=== PATIENT | female | born 1945 | race Caucasian/White ===

== ENCOUNTER 2017-03-27 16:57 | Inpatient (IN) | payer MEDICARE ==
[2017-03-27] MEDS ORDERED: SODIUM CHLORIDE 0.9% 1,000 ML IV STA ×2 (17:40→18:56)
--- NOTE | 2017-03-27 17:42 | ED ---
General Adult HPI - General Chief complaint: Recheck/Abnormal Lab/Rx Stated complaint: Sent by [facility] potassium Time Seen by Provider: 03/27/17 17:37 Source: patient, family, RN notes reviewed Mode of arrival: wheelchair Limitations: no limitations - History of Present Illness Initial comments: Patient is a pleasant 72-year-old female presenting to the emergency department for abnormal labs. Patient saw primary care doctor today and was told there was concerns regarding kidney function and potassium level. Patient states she feels fine and has no complaints. Daughter is concerned the patient has been urinating less than normal however patient feels it has been normal. No history of kidney - Related Data Home Medications Medication Instructions Recorded Confirmed Aspirin [Adult Low Dose Aspirin EC] 81 mg PO DAILY 03/27/17 03/27/17 Atenolol [Tenormin] 12.5 mg PO DAILY 03/27/17 03/27/17 Atorvastatin Calcium [Lipitor] 10 mg PO HS 03/27/17 03/27/17 Levothyroxine Sodium 88 mcg PO DAILY 03/27/17 03/27/17 Lisinopril 40 mg PO BID 03/27/17 03/27/17 amLODIPine [Norvasc] 5 mg PO BID 03/27/17 03/27/17 Allergies Allergy/AdvReac Type Severity Reaction Status Date / Time Penicillins Allergy Rash/Hives Verified 03/27/17 18:25 Review of Systems ROS Statement: Those systems with pertinent positive or pertinent negative responses have been documented in the HPI. ROS Other: All systems not noted in ROS Statement are negative. Constitutional: Denies: fever Eyes: Denies: eye pain ENT: Denies: ear pain Respiratory: Denies: cough Cardiovascular: Denies: chest pain Endocrine: Denies: fatigue Gastrointestinal: Denies: abdominal pain Genitourinary: Denies: urgency, dysuria, frequency, hematuria Musculoskeletal: Denies: back pain Skin: Denies: rash Neurological: Denies: headache Past Medical History Past Medical History: No Reported History History of Any Multi-Drug Resistant Organisms: None Reported Past Surgical History: No Surgical Hx Reported Past Psychological History: No Psychological Hx Reported Smoking Status: Never smoker Past Alcohol Use History: None Reported Past Drug Use History: None Reported General Exam Limitations: no limitations General appearance: alert, in no apparent distress Head exam: Present: atraumatic Eye exam: Present: normal appearance, PERRL ENT exam: Present: normal oropharynx Neck exam: Present: normal inspection Respiratory exam: Present: normal lung sounds bilaterally Cardiovascular Exam: Present: regular rate, normal rhythm GI/Abdominal exam: Present: soft. Absent: tenderness Extremities exam: Present: normal inspection Back exam: Present: normal inspection. Absent: CVA tenderness (R), CVA tenderness (L) Neurological exam: Present: alert Psychiatric exam: Present: flat affect Skin exam: Present: normal color Course Vital Signs 03/27/17 03/27/17 17:26 18:41 Temperature 97.4 F L Pulse Rate 77 78 Respiratory 20 18 Rate Blood Pressure 98/58 95/58 O2 Sat by Pulse 98 99 Oximetry - Reevaluation(s) Reevaluation #1: 03/27/17 19:06 Hospitals out of sodium bicarb and sodium acetate. Patient will be provided bicarb tablets. Patient and family updated on results and plan. Case discussed in detail with Dr. bullard, who will admit for Dr. Banks. Admission orders written. Consult placed for nephrology. EKG Findings - EKG Comments: EKG Findings:: Normal sinus rhythm 69. First-degree AV block NE of 206. QRS 82. QT 402. QTC 4:30. Left axis. Low QRS voltage. Inferior Q waves. Poor R -wave progression. No acute ST change. Medical Decision Making - Lab Data Result diagrams: 03/27/17 17:48 03/27/17 17:48 Lab Results 03/27/17 03/27/17 03/27/17 Range/Units 17:48 17:48 17:48 WBC 10.0 (3.8-10.6) k/uL RBC 3.64 L (3.80-5.40) m/uL Hgb 11.0 L (11.4-16.0) gm/dL Hct 33.1 L (34.0-46.0) % MCV 91.0 (80.0-100.0) fL MCH 30.3 (25.0-35.0) pg MCHC 33.3 (31.0-37.0) g/dL RDW 14.2 (11.5-15.5) % Plt Count 340 (150-450) k/uL Neutrophils % 68 % Lymphocytes % 23 % Monocytes % 4 % Eosinophils % 3 % Basophils % 0 % Neutrophils # 6.8 (1.3-7.7) k/uL Lymphocytes # 2.3 (1.0-4.8) k/uL Monocytes # 0.4 (0-1.0) k/uL Eosinophils # 0.3 (0-0.7) k/uL Basophils # 0.0 (0-0.2) k/uL Hypochromasia Slight PT (9.0-12.0) sec INR (<1.1) APTT (22.0-30.0) sec Sodium 139 (137-145) mmol/L Potassium 6.5 H* (3.5-5.1) mmol/L Chloride 114 H (98-107) mmol/L Carbon Dioxide 13 L (22-30) mmol/L Anion Gap 12 mmol/L BUN 49 H (7-17) mg/dL Creatinine 1.90 H (0.52-1.04) mg/dL Est GFR (MDRD) Af Amer 31 (>60 ml/min/1.73 sqM) Est GFR (MDRD) Non-Af 26 (>60 ml/min/1.73 sqM) Glucose 110 H (74-99) mg/dL Calcium 8.8 (8.4-10.2) mg/dL Phosphorus 4.0 (2.5-4.5) mg/dL Magnesium 2.5 H (1.6-2.3) mg/dL Total Bilirubin 0.5 (0.2-1.3) mg/dL AST 14 (14-36) U/L ALT 17 (9-52) U/L Alkaline Phosphatase 128 H (38-126) U/L Total Creatine Kinase <20 L (30-135) U/L Total Protein 7.7 (6.3-8.2) g/dL Albumin 4.2 (3.5-5.0) g/dL 03/27/17 Range/Units 17:48 WBC (3.8-10.6) k/uL RBC (3.80-5.40) m/uL Hgb (11.4-16.0) gm/dL Hct (34.0-46.0) % MCV (80.0-100.0) fL MCH (25.0-35.0) pg MCHC (31.0-37.0) g/dL RDW (11.5-15.5) % Plt Count (150-450) k/uL Neutrophils % % Lymphocytes % % Monocytes % % Eosinophils % % Basophils % % Neutrophils # (1.3-7.7) k/uL Lymphocytes # (1.0-4.8) k/uL Monocytes # (0-1.0) k/uL Eosinophils # (0-0.7) k/uL Basophils # (0-0.2) k/uL Hypochromasia PT 9.8 (9.0-12.0) sec INR 1.0 (<1.1) APTT 25.0 (22.0-30.0) sec Sodium (137-145) mmol/L Potassium (3.5-5.1) mmol/L Chloride (98-107) mmol/L Carbon Dioxide (22-30) mmol/L Anion Gap mmol/L BUN (7-17) mg/dL Creatinine (0.52-1.04) mg/dL Est GFR (MDRD) Af Amer (>60 ml/min/1.73 sqM) Est GFR (MDRD) Non-Af (>60 ml/min/1.73 sqM) Glucose (74-99) mg/dL Calcium (8.4-10.2) mg/dL Phosphorus (2.5-4.5) mg/dL Magnesium (1.6-2.3) mg/dL Total Bilirubin (0.2-1.3) mg/dL AST (14-36) U/L ALT (9-52) U/L Alkaline Phosphatase (38-126) U/L Total Creatine Kinase (30-135) U/L Total Protein (6.3-8.2) g/dL Albumin (3.5-5.0) g/dL Critical Care Time Critical Care Time: Yes Total Critical Care Time: 32 Disposition Clinical Impression: Hyperkalemia, Acute renal failure (ARF) Disposition: ADMITTED IP TO THIS [facility] Referrals: Cornelio Banks MD [Primary Care Provider] - 1-2 days Decision Time: 19:07
[2017-03-27 18:00] LABS: Basophils % (A) 0 %; CH 28.5; CHCM 31.4; Eosinophils # (A) 0.3 k/uL (0-0.7); Eosinophils % (A) 3 %; HCT 33.1 % (34.0-46.0); HDW 2.67; Hypochromasia Slight; Luc # (Auto) 0.14; Luc % (Auto) 1; Lymphocytes # (A) 2.3 k/uL (1.0-4.8); Lymphocytes % (A) 23 %; MCH 30.3 pg (25.0-35.0); MCHC 33.3 g/dL (31.0-37.0); Mean Platelet Volume 6.6; Monocytes # (A) 0.4 k/uL (0-1.0); Monocytes % (A) 4 %; Neutrophils # (A) 6.8 k/uL (1.3-7.7); Neutrophils % (A) 68 %; RBC 3.64 m/uL (3.80-5.40); RDW 14.2 % (11.5-15.5); WBC (Perox) 10.41
[2017-03-27 18:09] LABS: Prothrombin Time 9.8 sec (9.0-12.0)
--- NOTE | 2017-03-27 18:12 | XR ---
EXAMINATION TYPE: XR chest 2V DATE OF EXAM: 03/27/2017 COMPARISON: 08/23/2011 HISTORY: Weakness TECHNIQUE: Frontal and lateral views of the chest are obtained. FINDINGS: There is no heart failure nor confluent pneumonic infiltrate. Heart size is normal. There are chest leads. Bony thorax is intact. There is no pleural effusion. IMPRESSION: No active cardiopulmonary disease. No change.
[2017-03-27 18:13] LABS: Calcium 8.8 mg/dL (8.4-10.2); Magnesium 2.5 mg/dL (1.6-2.3); Total Bilirubin 0.5 mg/dL (0.2-1.3); Total Protein 7.7 g/dL (6.3-8.2)
[2017-03-27 18:17] LABS: Potassium 6.5 mmol/L (3.5-5.1)
[2017-03-27 18:58] LABS: Creatine Kinase <20 U/L (30-135)
[2017-03-27] MEDS ORDERED: NALOXONE 0.4 MG/ML 1 ML VIAL IV PRN (19:07)
[2017-03-27 19:09] LABS: Creatine Kinase MB <0.2 ng/mL (0.0-2.4); Troponin I <0.012 ng/mL (0.000-0.034)
[2017-03-27] MEDS ORDERED: SODIUM POLYSTYRENE SULFONATE 15 GM/60 ML BOTTLE PO STA (19:09)
[2017-03-27] MEDS ORDERED: DEXTROSE 50%-WATER 50 ML SYRINGE IVP STA (19:09)
[2017-03-27] MEDS ORDERED: INSULIN REGULAR 100 UNIT/ML VIAL IV ONE (19:10)
[2017-03-27] MEDS ORDERED: CALCIUM GLUCONATE 1,000 MG in SODIUM CHLORIDE 0.9% 100 ML IVPB STA (19:11)
[2017-03-27] MEDS ORDERED: SODIUM BICARBONATE TAB 650 MG TAB PO STA (19:12)
[2017-03-27 19:30] LABS: Appearance,Urine Cloudy (Clear); Bacteria,Urine Moderate /hpf; Bilirubin,Urine Negative (Negative); Glucose,Urine (UA) Negative (Negative); Ketones,Urine Negative (Negative); Leukocyte Esterase,Urine Large (Negative); Mucus,Urine Rare /hpf; Nitrite,Urine Negative (Negative); Particle Count 8281; Protein,Urine Trace (Negative); Specific Gravity,Urine 1.006 (1.001-1.035); Squamous Epithelial Cell,Urine 1 /hpf (0-4); UA Billing (MACRO vs. MICRO) MICRO; Urobilinogen,Urine <2.0 mg/dL (<2.0); WBC,Urine >182 /hpf (0-5)
[2017-03-27] MEDS: SODIUM CHLORIDE 0.9% 1,000 ML IV SCH (19:36)
[2017-03-27 20:47] VITALS: RESP 16
[2017-03-28] MEDS: SODIUM CHLORIDE 0.9% 1,000 ML IV SCH (02:04)
[2017-03-28 07:26] LABS: Calcium 8.4 mg/dL (8.4-10.2); Potassium 5.4 mmol/L (3.5-5.1); Total Bilirubin 0.3 mg/dL (0.2-1.3); Total Protein 6.5 g/dL (6.3-8.2)
[2017-03-28 08:16] LABS: Basophils % (A) 0 %; CH 29.1; CHCM 31.5; Eosinophils # (A) 0.2 k/uL (0-0.7); Eosinophils % (A) 2 %; HCT 30.4 % (34.0-46.0); HDW 2.64; HGB 9.8 gm/dL (11.4-16.0); Hypochromasia Slight; Luc # (Auto) 0.11; Luc % (Auto) 1; Lymphocytes # (A) 1.7 k/uL (1.0-4.8); Lymphocytes % (A) 22 %; MCH 29.9 pg (25.0-35.0); MCHC 32.3 g/dL (31.0-37.0); MCV 92.8 fL (80.0-100.0); Mean Platelet Volume 6.7; Monocytes # (A) 0.4 k/uL (0-1.0); Monocytes % (A) 5 %; Neutrophils # (A) 5.2 k/uL (1.3-7.7); Neutrophils % (A) 69 %; RBC 3.27 m/uL (3.80-5.40); RDW 14.3 % (11.5-15.5); WBC 7.5 k/uL (3.8-10.6); WBC (Perox) 7.69
[2017-03-28] MEDS ORDERED: DEXTROSE 5%-0.45% NACL 1,000 ML IV SCH (08:30)
[2017-03-28] MEDS: SODIUM BICARBONATE TAB 650 MG TAB PO SCH ×3 (08:32→17:46)
[2017-03-28] MEDS: ENOXAPARIN 40 MG/0.4 ML SYRINGE SQ SCH (08:58)
[2017-03-28] MEDS: amLODIPine 5 MG TAB PO SCH ×2 (08:59→20:11)
[2017-03-28] MEDS: ATENOLOL 12.5 MG TAB PO SCH (08:59)
[2017-03-28] MEDS: LEVOTHYROXINE 88 MCG TAB PO SCH (08:59)
[2017-03-28] MEDS: ASPIRIN 81 MG CHEW PO SCH (08:59)
[2017-03-28] MEDS ORDERED: LISINOPRIL 20 MG TAB PO SCH (09:00)
--- NOTE | 2017-03-28 11:30 | P.NPCON ---
History of Present Illness - Reason for Consult acute renal failure, hyperkalemia - Chief Complaint Asymptomatic with hyperkalemia and acute kidney injury - History of Present Illness This is a 72-year-old female seen in consultation because of hyperkalemia and possible acute and chronic kidney disease. She was sent in by her primary physician because of abnormal labs, potassium is 6.5, creatinine was 1.9. No previous labs are available patient is unaware of any kidney disease. She is known with hypertension for 5 years on medication including lisinopril. 5 years ago she had a CVA which affected her speech from which she recovered completely. She is able to walk without any difficulty and without using any cane or support. She is fairly asymptomatic. Denies taking any nonsteroidals antibiotics. No changes in medications recently. No history of urinary frequency and dysuria or bladder incontinence. No history of falls GI bleed. No history of syncope seizures. No history of aches and pains in her muscles. Past history is significant for hypertension for 10 years and a stroke 5 years ago as mentioned above which resulted in a speech problem that resolved. Past Medical History Past Medical History: CVA/TIA, Hypertension Additional Past Medical History / Comment(s): 2010 CVA/-DAUGHTER STATED" THAT OCCASIONALLY HAS TROUBLE WITH A WORD" History of Any Multi-Drug Resistant Organisms: None Reported Past Surgical History: No Surgical Hx Reported Additional Past Surgical History / Comment(s): DENIES EVER HAVING ANY SX. Past Anesthesia/Blood Transfusion Reactions: No Reported Reaction Smoking Status: Never smoker - Past Family History Father Family Medical History: Myocardial Infarction ([place]) Mother Family Medical History: Myocardial Infarction ([place]) Medications and Allergies Home Medications Medication Instructions Recorded Confirmed Type Aspirin [Adult Low Dose Aspirin EC] 81 mg PO DAILY 03/27/17 03/27/17 History Atenolol [Tenormin] 12.5 mg PO DAILY 03/27/17 03/27/17 History Atorvastatin Calcium [Lipitor] 10 mg PO HS 03/27/17 03/27/17 History Levothyroxine Sodium 88 mcg PO DAILY 03/27/17 03/27/17 History Lisinopril 40 mg PO BID 03/27/17 03/27/17 History amLODIPine [Norvasc] 5 mg PO BID 03/27/17 03/27/17 History Allergies Allergy/AdvReac Type Severity Reaction Status Date / Time Penicillins Allergy Rash/Hives Verified 03/27/17 18:25 Physical Exam Vitals: Vital Signs Temp Pulse Pulse Resp BP BP BP 03/28/17 08:00 73 16 03/28/17 07:00 98.3 F 73 16 121/65 03/28/17 01:00 16 03/27/17 22:57 98 F 78 16 101/62 03/27/17 20:46 97.6 F 86 16 108/65 03/27/17 20:15 97.8 F 84 18 131/62 03/27/17 19:38 97.8 F 03/27/17 19:37 80 18 154/69 03/27/17 18:41 78 18 95/58 03/27/17 17:26 97.4 F L 77 20 98/58 Pulse Ox 03/28/17 08:00 03/28/17 07:00 98 03/28/17 01:00 03/27/17 22:57 96 03/27/17 20:46 99 03/27/17 20:15 98 03/27/17 19:38 03/27/17 19:37 97 03/27/17 18:41 99 03/27/17 17:26 98 Intake and Output 03/27/17 03/28/17 03/28/17 22:59 06:59 14:59 Intake Total 1010 Balance 1010 Intake: Intake, IV Titration 1010 Amount Sodium Chloride 0.9% 1, 960 000 ml @ 120 mls/hr IV . Q8H20M [facility] Rx#:[id number] cefTRIAXone 1,000 mg In 50 Sodium Chloride 0.9% 50 ml @ 100 mls/hr IVPB HS [facility] Rx#:[id number] Other: Voiding Method Toilet Toilet Weight 86.183 kg On examination she looks anxious otherwise comfortable. HEENT exam no JVP lymphadenopathy thyromegaly no carotid bruit neck is supple no facial asymmetry Lungs are clear to auscultation percussion good air entry bilaterally Heart sounds are unremarkable for any murmur rub gallop Abdomen soft nontender no organomegaly status masses No nodes in the groin and axilla or Extremity exam was no edema. Warm to touch. Neurologically awake alert oriented no focal motor deficit. Results - Lab Results Most recent lab results Calcium 8.4 mg/dL (8.4-10.2) 03/28/17 06:47 Phosphorus 4.0 mg/dL (2.5-4.5) 03/27/17 17:48 Magnesium 2.5 mg/dL (1.6-2.3) H 03/27/17 17:48 03/28/17 06:47 03/28/17 06:47 Assessment and Plan Plan: Impression. 1. Acute kidney injury secondary to prerenal state, low blood pressure, her blood pressure 98/58. 2. Hyperkalemia secondary to acute kidney injury and lisinopril. Potassium improved from 6.5-5.4 3. Pyuria, asymptomatic. Possibly contaminant. Rule out UTI although she is completely asymptomatic 4. Past history of CVA involving speech which she recovered completely from. 5. History of hypertension 5 years. 6. Anemia with hemoglobin going down from 11-9.8 possibly secondary to hydration. Rule out iron deficiency. 7. Non-gap acidosis from acute kidney injury Recommendation. 1. Maintain IV fluids and let her blood pressure stable 06/21/2020 to 140. We can give her IV normal saline 2. She is on lisinopril 40 twice a day we will cut her 20th day and with parameters to hold if less than 120 systolic. Watch her potassium closely. 3. Obtain ultrasound of the kidney. 4. Monitor labs. 5. Check iron saturation. Thank you for this consultation, feel free to call me.
[2017-03-28] MEDS ORDERED: SODIUM CHLORIDE 0.9% 1,000 ML IV SCH (11:45)
--- NOTE | 2017-03-28 13:56 | US ---
EXAMINATION TYPE: US kidneys/renal and bladder DATE OF EXAM: 03/28/2017 COMPARISON: NONE CLINICAL HISTORY: 72-year-old female with renal failure; patient stated thought she had bladder infec tion. TECHNIQUE: Multiple sonographic images of the kidneys and bladder were obtained. FINDINGS: Right Kidney: 8.8 x 5.4 x 4.9 cm with minimal to mild hydronephrosis. Left Kidney: 9.5 x 6.0 x 4.7 cm with pelviectasis but no clear calyceal dilatation. Underdistention of the bladder limits its evaluation. Both ureteral jets are visualized. IMPRESSION: Minimal to mild right-sided hydronephrosis. On the left, the renal pelvis appears dilated but there i s no clear calyceal enlargement to support hydronephrosis on the left at this time. Both ureteral jet s are seen.
[2017-03-28] MEDS: SODIUM CHLORIDE 0.45% 1,000 ML IV SCH (17:46)
--- NOTE | 2017-03-28 18:05 | P.HPIM ---
History of Present Illness H&P Date: 03/28/17 Chief Complaint: Tired This is a pleasant 72-year-old patient of Dr. Banks. Patient's daughter is the bedside to give most of the history. Patient has been feeling weak and tired. No other major issues. Went to the blood work checked. Potassium was critically elevated and patient's found of abnormal renal function. Don't have any baseline labs. Patient has a fair appetite. Fair urine output. Has history of hypertension and takes ACEI Review of Systems GEN.: Tired EYES: None HEENT: None NECK: None RESPIRATORY: None CARDIOVASCULAR: None GASTROINTESTINAL: None GENITOURINARY: None MUSCULOSKELETAL: Pain in some joints LYMPHATICS: None HEMATOLOGICAL: None PSYCHIATRY: Forgetful NEUROLOGICAL: None Past Medical History Past Medical History: CVA/TIA, Hypertension Additional Past Medical History / Comment(s): 2010 CVA/-DAUGHTER STATED" THAT OCCASIONALLY HAS TROUBLE WITH A WORD" History of Any Multi-Drug Resistant Organisms: None Reported Past Surgical History: No Surgical Hx Reported Additional Past Surgical History / Comment(s): DENIES EVER HAVING ANY SX. 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, works as a cook, alcohol occasionally, no smoking - Past Family History Father Family Medical History: Myocardial Infarction ([place]) Mother Family Medical History: Myocardial Infarction ([place]) Medications and Allergies Home Medications Medication Instructions Recorded Confirmed Type Aspirin [Adult Low Dose Aspirin EC] 81 mg PO DAILY 03/27/17 03/27/17 History Atenolol [Tenormin] 12.5 mg PO DAILY 03/27/17 03/27/17 History Atorvastatin Calcium [Lipitor] 10 mg PO HS 03/27/17 03/27/17 History Levothyroxine Sodium 88 mcg PO DAILY 03/27/17 03/27/17 History Lisinopril 40 mg PO BID 03/27/17 03/27/17 History amLODIPine [Norvasc] 5 mg PO BID 03/27/17 03/27/17 History Allergies Allergy/AdvReac Type Severity Reaction Status Date / Time Penicillins Allergy Rash/Hives Verified 03/27/17 18:25 Physical Exam VITAL SIGNS: 97.4, 77, 20, 98/58, 98% 2 L GENERAL: Average built, sitting up, comfortable. EYES: Pupils equal. Conjunctiva normal. HEENT: External appearance of nose and ears normal, oral cavity grossly normal, decreased hearing. NECK: JVD not raised; masses not palpable. HEART: First and second heart sounds are normal; no edema. LUNGS: Respiratory rate normal; clear to auscultation. ABDOMEN: Soft, nontender, liver spleen not palpable, no masses palpable. LYMPHATICS: No lymph nodes palpable in the axilla and neck. PSYCH: Alert and oriented x3; mood and affect normal. NEUROLOGICAL: Cranial nerves grossly intact; no facial asymmetry, power and sensation grossly intact. Results CBC & Chem 7: 03/28/17 06:47 03/28/17 06:47 Labs: White count 10 hemoglobin 11 repeat 9.8 potassium 6. 5 repeat 5.4 chloride 11 4 repeat 120 BUNs and 49. Creatinine 1.90 with repeat 32/1.41 UA positive Assessment and Plan Plan: Assessment: -Acute severe renal failure probably ATN including drug-induced causing hyperkalemia and patient being on Tre inhibitors -Acute UTI -Hypotension on presentation Essential hypertension Normocytic anemia, cause unknown Plan: Patient was given insulin sodium bicarb, calcium carbonate, Kayexalate. Tre inhibitors were discontinued. IV fluids were started. Since patient has hyperchloremia, will switch the patient to half saline. Care was discussed in detail with the patient and daughter. Questions were answered. Follow electrolytes closely
[2017-03-28] MEDS ORDERED: LISINOPRIL 10 MG TAB PO SCH (21:00)
[2017-03-28] MEDS ORDERED: ATORVASTATIN 10 MG TAB PO SCH (21:00)
[2017-03-28 22:35] VITALS: PULSE 82
[2017-03-29] MEDS: SODIUM CHLORIDE 0.45% 1,000 ML IV SCH (00:16)
[2017-03-29] MEDS: SODIUM BICARBONATE TAB 650 MG TAB PO SCH ×2 (06:06→07:48)
[2017-03-29] MEDS: LEVOTHYROXINE 88 MCG TAB PO SCH (06:07)
[2017-03-29] MEDS: ATENOLOL 12.5 MG TAB PO SCH (07:48)
[2017-03-29] MEDS: ASPIRIN 81 MG CHEW PO SCH (07:48)
[2017-03-29] MEDS: ENOXAPARIN 40 MG/0.4 ML SYRINGE SQ SCH (07:48)
[2017-03-29] MEDS: amLODIPine 5 MG TAB PO SCH (07:48)
[2017-03-29 10:17] LABS: Basophils % (A) 1 %; CH 28.9; CHCM 31.2; Eosinophils # (A) 0.2 k/uL (0-0.7); Eosinophils % (A) 2 %; HDW 2.63; HGB 10.5 gm/dL (11.4-16.0); Hypochromasia Slight; Luc # (Auto) 0.05; Luc % (Auto) 1; Lymphocytes # (A) 1.7 k/uL (1.0-4.8); Lymphocytes % (A) 21 %; MCH 28.8 pg (25.0-35.0); Mean Platelet Volume 6.7; Monocytes # (A) 0.3 k/uL (0-1.0); Monocytes % (A) 4 %; Neutrophils # (A) 5.7 k/uL (1.3-7.7); Neutrophils % (A) 72 %; RBC 3.65 m/uL (3.80-5.40); RDW 14.3 % (11.5-15.5); WBC 7.9 k/uL (3.8-10.6); WBC (Perox) 7.97
[2017-03-29 10:29] LABS: Calcium 8.9 mg/dL (8.4-10.2); Potassium 4.5 mmol/L (3.5-5.1); Total Bilirubin 0.4 mg/dL (0.2-1.3); Total Protein 7.3 g/dL (6.3-8.2)
--- NOTE | 2017-03-29 10:57 | P.PN ---
Subjective Principal diagnosis: Alessandra was seen because of acute kidney injury from low blood pressure and perhaps medications and low intake. With hydration and reduction in blood pressure medication as her creatinine is improved. She is feeling back to normal and wants to be discharged. She is denying any complaints at all no nausea vomiting good appetite. Remains hypotensive with blood pressure in the 100 110 range although asymptomatic. No nausea vomiting diarrhea abdominal pain dysuria frequency. No chest pain dizziness. This is a 72-year-old female seen in consultation because of hyperkalemia and possible acute and chronic kidney disease. She was sent in by her primary physician because of abnormal labs, potassium is 6.5, creatinine was 1.9. No previous labs are available patient is unaware of any kidney disease. She is known with hypertension for 5 years on medication including lisinopril. 5 years ago she had a CVA which affected her speech from which she recovered completely. She is able to walk without any difficulty and without using any cane or support. She is fairly asymptomatic. Denies taking any nonsteroidals antibiotics. No changes in medications recently. No history of urinary frequency and dysuria or bladder incontinence. No history of falls GI bleed. No history of syncope seizures. No history of aches and pains in her muscles. Past history is significant for hypertension for 10 years and a stroke 5 years ago as mentioned above which resulted in a speech problem that resolved. Objective - Vital Signs Vital signs: Vital Signs Temp 97.7 F 03/29/17 07:00 Pulse 82 03/29/17 07:54 Resp 16 03/29/17 07:54 BP 100/57 03/29/17 07:00 Pulse Ox 96 03/29/17 08:58 Intake & Output 03/28/17 03/29/17 03/29/17 18:59 06:59 18:59 Intake Total 1130 725 Balance 1130 725 Weight 86.183 kg Intake: Intake, IV Titration 650 725 Amount Dextrose 5%-0.45% NaCl 1, 600 000 ml @ 120 mls/hr IV . Q8H20M [facility] Rx#:[id number] Sodium Chloride 0.45% 1, 675 000 ml @ 75 mls/hr IV . [id number] [facility] Rx#:[id number] cefTRIAXone 1,000 mg In 50 50 Sodium Chloride 0.9% 50 ml @ 100 mls/hr IVPB HS [facility] Rx#:[id number] Oral 480 Other: Voiding Method Toilet Diaper Diaper Incontinent Incontinent # Voids 1 2 On examination she is awake alert oriented comfortable sitting in a chair. A chin exam no JVP neck is supple no facial asymmetry Lungs are clear to auscultation percussion good air entry bilaterally. Heart sounds are unremarkable for any murmur rub gallop. Abdomen is soft nontender no organomegaly ascites masses. Extremity exam was trace edema. Awake alert oriented comfortable. Warm to touch. - Labs CBC & Chem 7: 03/29/17 09:54 03/29/17 09:54 Labs: Abnormal Lab Results - Last 24 Hours (Table) 03/28/17 03/29/17 03/29/17 Range/Units 06:47 09:54 09:54 RBC 3.65 L (3.80-5.40) m/uL Hgb 10.5 L (11.4-16.0) gm/dL Chloride 114 H (98-107) mmol/L Carbon Dioxide 17 L (22-30) mmol/L BUN 22 H (7-17) mg/dL Creatinine 1.26 H (0.52-1.04) mg/dL Glucose 185 H (74-99) mg/dL TIBC 251 L (265-497) ug/dL Microbiology - Last 24 Hours (Table) 03/27/17 19:17 Urine Culture - Preliminary Urine,Voided Gram Neg Bacilli Assessment and Plan Plan: Impression. 1. Acute kidney injury secondary to prerenal state, low blood pressure, her blood pressure 98/58. Her medications have been reduced she is off of lisinopril. Creatinine is improved to 1.2 from 1.9. 2. Hyperkalemia secondary to acute kidney injury and lisinopril. Potassium improved from 6.5-5.4 and now is down to normal at 4.5 3. Pyuria, asymptomatic. Cultures growing greater than 100,000 colonies of gram-negative bacilli final identity and sensitivity not reported. 4. Past history of CVA involving speech which she recovered completely from. 5. History of hypertension 5 years. 6. Anemia with hemoglobin going down from 11-9.8 possibly secondary to hydration. Hemoglobin is up to 10.5 this morning 7. Non-gap acidosis from acute kidney injury, bicarb is up to 17 and anion gap remains 12 improving on oral bicarb. 8. Chronic kidney disease with small kidneys 8.8 cm right sided kidney and 9.5 cm left kidney and minimal to mild right-sided hydronephrosis. This further needs urological evaluation Recommendation. 1. DC IV fluids 2. Check iron saturation. 3. Maintain sodium bicarb for right now. 4. Consult urology regarding the hydronephrosis. 5 patient to be discharged but needs to be followed up in the office. Thank you for this consultation, feel free to call me if you have any questions.
[2017-03-29 14:57] VITALS: BP 102/63; TEMP 98
--- NOTE | 2017-03-29 18:05 | P.DS ---
Providers Date of admission: 03/27/17 19:09 Expected date of discharge: 03/29/17 Attending physician: Joseph Spain Consults: 03/27/17 19:08 Consult Physician Urgent Consulting Provider: Noemi Watts Consult Reason/Comments: arf, hyperkalemia Do you want consulting provider notified?: Yes Primary care physician: Cornelio Banks Hospital Course: Final diagnosis -Acute severe renal failure probably ATN including drug-induced causing hyperkalemia and patient being on Tre inhibitors -Acute UTI, from gram-negative bacilli -Hypotension on presentation Essential hypertension Normocytic anemia, cause unknown Hypothyroid Acute metabolic acidosis from renal failure This patient presented feeling weak and tired. For global BUNs/creatinine of 49 /1.90 with hydration did come /.. Patient's potassium was 6.5 on admission did come down to 4.5 hemoglobin is 10.5. Discussed at length with the patient and daughter. Patient's TRE inhibitor has been discontinued. Also because of the abdomen was half to 25 mg a day. Discharge planning and discussion more than 35 minutes including discussion with the daughter On examination: Lungs fair entry, cardiovascular first seconds are normal, psych is able to answer simple questions Plan - Discharge Summary New Discharge Prescriptions: New Cefuroxime [Ceftin] 250 mg PO BID #6 tab Sodium Bicarbonate Tab 650 mg PO TID@0600,1200,1800 #60 tab Continue Levothyroxine Sodium 88 mcg PO DAILY Aspirin [Adult Low Dose Aspirin EC] 81 mg PO DAILY Atorvastatin Calcium [Lipitor] 10 mg PO HS Changed amLODIPine [Norvasc] 5 mg PO DAILY #0 Atenolol [Tenormin] 12.5 mg PO HS #0 Discontinued Lisinopril 40 mg PO BID Discharge Medication List Aspirin [Adult Low Dose Aspirin EC] 81 mg PO DAILY 03/27/17 [History] Atorvastatin Calcium [Lipitor] 10 mg PO HS 03/27/17 [History] Levothyroxine Sodium 88 mcg PO DAILY 03/27/17 [History] Atenolol [Tenormin] 12.5 mg PO HS #0 03/29/17 [Rx] Cefuroxime [Ceftin] 250 mg PO BID #6 tab 03/29/17 [Rx] Sodium Bicarbonate Tab 650 mg PO TID@0600,1200,1800 #60 tab 03/29/17 [Rx] amLODIPine [Norvasc] 5 mg PO DAILY #0 03/29/17 [Rx] Follow up Appointment(s)/Referral(s): Cornelio Banks MD [Primary Care Provider] - 3 Days [facility], [NON-STAFF] - Ambulatory/Diagnostic Orders: Basic Metabolic Panel [LAB.AMB] Time Frame: 1 Week, Location: Determined By Patient Patient Instructions/Handouts: Acute Kidney Injury (DC), Hyperkalemia (DC) Activity/Diet/Wound Care/Special Instructions: dc after supper today
== END 2017-03-29 18:32 | disposition home health service (06) | DRG 683 ==
LOC: EC 16:57 → 5MS5E 19:09
PROVIDERS: ADMIT Hospitalist; ATTEND Hospitalist
DX: N17.0 Acute kidney failure with tubular necrosis (principal); E87.2 Acidosis; N39.0 Urinary tract infection, site not specified; I95.9 Hypotension, unspecified; E87.8 Other disorders of electrolyte and fluid balance, not elsewhere classified; N13.30 Unspecified hydronephrosis; E87.5 Hyperkalemia; D64.9 Anemia, unspecified; E03.9 Hypothyroidism, unspecified; T46.4X5A Adverse effect of angiotensin-converting-enzyme inhibitors, initial encounter; R32 Unspecified urinary incontinence; I12.9 Hypertensive chronic kidney disease with stage 1 through stage 4 chronic kidney disease, or unspecified chronic kidney disease; N18.9 Chronic kidney disease, unspecified; Z79.82 Long term (current) use of aspirin; Z79.899 Other long term (current) drug therapy; Z88.0 Allergy status to penicillin; Z82.49 Family history of ischemic heart disease and other diseases of the circulatory system; Y92.009 Unspecified place in unspecified non-institutional (private) residence as the place of occurrence of the external cause
CPT/HCPCS: 36415; 71020; 76770; 80053; 81001; 82550; 82553; 83550; 83735; 84100; 84484; 85025; 85610; 85730; 87077; 87086; 87186; 93005; 94760; 96361; 96365; 96375; 99291